=== PATIENT | female | born 2000 | race Two or more races ===

== ENCOUNTER 2025-03-23 16:40 | Observation (INO) | payer MEDICAID, SELFPAY ==
[2025-03-23 16:42] VITALS: BP 122/73; PULSE 95; RESP 100; RESP 18; TEMP 36.6; O2SAT 100
[2025-03-23 16:47] VITALS: PULSE 112; O2SAT 100
[2025-03-23 16:52] VITALS: PULSE 92; O2SAT 100
[2025-03-23 16:53] VITALS: BMI 27.3
[2025-03-23 16:57] VITALS: PULSE 91; O2SAT 100
[2025-03-23 17:02] VITALS: PULSE 92; O2SAT 99
== END 2025-03-23 17:10 | disposition home or self-care (01) ==
PROVIDERS: Admitting Provider Specialist; Visit Provider Specialist
DX: O36.8130 Decreased fetal movements, third trimester, not applicable or unspecified (principal); Z3A.34 34 weeks gestation of pregnancy
CPT/HCPCS: 59025; 59899

== ENCOUNTER 2025-04-22 13:50 | Inpatient (IN) | payer MEDICAID, SELFPAY ==
[2025-04-22] VITALS (118 sets, daily range): BP systolic 108–165; BP diastolic 55–103; PULSE 79–117; RESP 17–99; TEMP 36.6–36.8; O2SAT 97–100; BMI 34.1
[2025-04-22] MEDS: RINGERS LACTATED 1000 ML 1,000 ML 100 ML IV ×3 (14:44→20:08)
[2025-04-22 14:48] LABS: Basophils # (Auto) 0.0 Thou/mm3 (0.0-0.2); Basophils % (Auto) 0 % (0-2.5); Eosinophils # (Auto) 0.0 Thou/mm3 (0.0-0.5); Eosinophils % (Auto) 0 % (0-10); Hematocrit 33.2 % (36.0-46.0); Hemoglobin 10.9 g/dL (12.0-16.0); Immature Granulocytes Auto 0.17 Thou/mm3 (0.00-0.00); Lymphocytes # (Auto) 1.3 Thou/mm3 (1.0-4.8); Lymphocytes % (Auto) 12 % (10-50); Mean Corpuscular HGB Conc 32.8 g/dl (31.0-37.0); Mean Corpuscular Hemoglobin 28.3 pg (25.0-35.0); Mean Corpuscular Volume 86 fL (80-100); Monocytes # (Auto) 0.6 Thou/mm3 (0.0-0.8); Monocytes % (Auto) 5 % (0-12); Neutrophils # (Auto) 8.6 Thou/mm3 (1.8-7.7); Neutrophils % (Auto) 80 % (37-80); Nucleated Red Blood Cell # 0.00 Thou/mm3 (0.00-0.00); Nucleated Red Blood Cell % 0 /100 WBC (0); Platelet Count 212 Thou/mm3 (140-440); RDW Standard Deviation 40.5 fL (36.4-46.3); Red Blood Count 3.85 Miln/mm3 (4.00-5.20); White Blood Count 10.7 Thou/mm3 (3.6-11.0)
[2025-04-22 15:25] LABS: Syphilis Nonreactive (Nonreactive)
[2025-04-22 16:14] LABS: Amphetamine/Metham Scrn,Ur OB Negative (Negative); Benzoylecgonine Screen, Ur OB Negative (Negative); Opiate Screen,Urine OB Negative (Negative); THC Screen,Urine OB Negative (Negative)
--- NOTE | 2025-04-22 16:59 | PD.LDHP ---
Documentation for date of: 04/22/25 OB Labor/Induct. HPI History of Present Illness Chief complaint: contractions : 2 Para: 1 Term pregnancies: 1 pregnancies: 0 Living children: 1 History of Abortions: Spontaneous and Elective: 0 History of Vaginal deliveries: 1 History of sections: No History of : No TESS: 05/06/25 Gestational Age (weeks): 38 Gestational Age (days): 0 History of present illness: Patient presents for regular, painful ctx. Started at 0900 today. No LOF. No vaginal bleeding. Normal movement. No fevers/chills. History of Present Adequate Care: Yes Narrative: Hx of 3 years ago, proven to [id number] Current significant for: PNC with Dr. Eddy Anemia, taking iron Current BMI 34.2 Currently finishing course of flagyl for BV Labs Maternal Blood Type: B Pos Labs: Positive: Rubella Titre, Negative: RPR, Hepatitis B, HIV, Chlamydia, Gonorrhea and Group Beta Strep and Unknown: Herpes Type 1, Herpes Type 2 and Covid-19 Narrative: 1hr glucola 122 HgbA1c 5.1 NIPT 46XY msafp negative Review of Systems Review of Systems Narrative Review of Systems: Review of Systems Systems Reviewed: All systems reviewed, normal except as documented Constitutional Constitutional: Denies body ache(s), Denies chills, Denies fever(s) and Denies headache(s) ENT Ears, Nose, Mouth, and Throat: Denies headache(s) and Denies vertigo Cardiovascular Cardiovascular: Denies chest pain, Denies palpitations, Denies dyspnea and Denies syncope Respiratory Respiratory: Denies cough, Denies dyspnea Gastrointestinal Gastrointestinal: Denies nausea and Denies vomiting Neurologic Neurologic: Denies convulsions, Denies headache(s), Denies other visual disturbances, Denies syncope and Denies vertigo Past Medical History Family History OTHER FAMILY HX: Hx of breast cancer maternal side Surgical History SURGICAL: Negative Section OTHER SURGICAL HX: laparoscopic appendectomy Social History SOCIAL: No current ETOH/illicit drug use/tobacco. Previous THC use. Good family support. Past Medical History Comments PMH COMMENT: Current BMI 34.2 Meds Home Medications and Allergies Home Medications ?Medication ?Instructions ?Recorded ?Confirmed ?Type vit no.37-iron fum 29 mg 1 tab PO QDAY 01/16/22 04/22/25 History iron-folic acid 1 mg chewable tablet (PreNata) metronidazole 500 mg tablet 500 mg PO BID 04/22/25 04/22/25 History Allergies Allergy/AdvReac Type Severity Reaction Status Date / Time No Known Allergies Allergy Verified 04/22/25 13:52 OB Exam Physical Exam Vital signs: Temp Pulse Resp BP Pulse Ox 98.2 F 92 17 117/71 97 04/22/25 13:57 04/22/25 13:59 04/22/25 13:57 04/22/25 13:59 04/22/25 14:19 Narrative: General: well developed, well nourished, no acute distress, conversant Cardiac: normal heart rate Lungs: breathing without distress Abdomen: soft, gravid, non-tender, no rebound or guarding Extremities: trace edema BLE Detailed Labor and Delivery Exam Dilation (cm): 4 Effacement (%): 80 Cervix position: mid station: -3 Consistency: soft Presentation: Vertex Membranes: intact Baseline heart rate: 150 monitor accelerations: 15x15 monitor decelerations: Variable (occasional) 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 Regular/painful contractions, SCE: 4/80/-3. Vitals wnl, benign exam. Reassuring assessment. PMhx/ complicated by: PNC with Dr. Eddy Anemia, taking iron Current BMI 34.2 Currently finishing course of flagyl for BV Plan: -Admit to L&D -Establish IV, routine labs -CEFM -Clear liquid diet -Wellness Ambassador/consent re: -GBS status: negative -Anticipate -Safe to proceed (2) Obesity affecting in third trimester: Status: Acute (3) Anemia affecting in third trimester: Status: Acute (2) Obesity affecting in third trimester Qualifiers: Obesity type affecting : unspecified obesity Qualified Code(s): O99.213 - Obesity complicating , third trimester
[2025-04-22] MEDS: OXYTOCIN in NS 30 units 30 UNIT/500 ML BAG IV (20:08)
[2025-04-22] MEDS: OXYTOCIN in NS 20 units 20 UNIT/1,000 ML BAG 125 UNIT IV (21:16)
--- NOTE | 2025-04-22 21:38 | OBDSUM_ITS ---
Data ([place]) Data Hx Section: No : 2 Term: 1 : 0 Livin Abortions: Spontaneous & Theraputic: 0 Delivery Data ([place]) Labor Data Initiation of labor: Augmentation Induction/Augmentation Agent: Pitocin and Artificial ROM ROM date: 04/22/25 ROM time: 21:06 Amniotic membrane rupture type: Artificial Amniotic fluid description: Clear Delivery Data Onset of labor date: 04/22/25 Onset of labor time: 09:20 Complete dilation date: 04/22/25 Complete dilation time: 20:50 delivery date: 04/22/25 [place] delivery time: 21:14 Placenta delivery date: 04/22/25 Placenta delivery time: 21:19 Stage 1 total time: Labor - Stage 1 Duration 11 hours and 30 minutes Delivered by: Melissa Cordero Delivery nurse: jillian cody RN [place] nurse: guerita blevins RN Translator/Interpreter at delivery: No Support person(s) at delivery: father of the baby maternal mother Other staff at delivery: damián duke rn Delivery Method Delivery method: Normal Vaginal Delivery Presentation: Vertex Anesthesia Type Anesthesia Type: Epidural Placenta Placenta delivery description: Spontaneous and Manual Removal Cord blood sent to lab: Yes cord blood collection: Cord Blood Type EBL Estimated blood loss (ml): 150 Umbilical Cord cord description: 3 Vessels and Nuchal Cord Additional Procedures Chica is a 24yo [id number] s/p uncomplicated at 38&0wk after presenting in active labor, delivering at 21:14 on 04/22/2025. On presentation, SCE was 4cm. She progressed with pitocin augmentation to C/C/0 at which point AROM was performed and she began pushing. She received an epidural in labor. With good maternal pushing efforts, 's head delivered OA and restituted ARSLAN. One nuchal cord reduced. Right anterior shoulder delivered easily followed by posterior shoulder and corpus. had spontaneous cry and was vigorous. Apgars 9/9. placed on maternal abdomen where nose/mouth were suctioned and dried/stimulated. After approximately 2 minutes, cord was clamped x2 and cut by FOB. Cord blood collected for typing. With fundal massage and cord traction, placenta delivered spontaneously and intact with 3 vessel centrally inserted cord. Bimanual massage performed and IV pitocin given per protocol with fundus then firm at u-2cm and hemostasis noted. Inspection of perineum and vagina revealed a small/superficial right [place]- urethral laceration and a very tiny 2nd degree midline perineal laceration which were repaired in routine fashion with 4-0 vicryl- total reapproximation and hemostasis achieved. Small trickle of blood, so sweep just within cervix/CLAYTON performed which retrieved a very small amount of clot. All counts correct x2. Mom and infant were doing well when I left the room. Melissa Cordero MD Complications Complications: none [place] Data ([place]) [place] Data order: 1 [place]'s gender: Male Identification band number: [id number] 1 minute: 9 5 minutes: 9
[2025-04-23 04:00] VITALS: BP 108/69; PULSE 86; RESP 18; TEMP 36.8; O2SAT 98
[2025-04-23] MEDS: IBUPROFEN TAB 400 MG TABLET 800 MG PO ×2 (04:08→16:25)
[2025-04-23 05:51] LABS: Basophils # (Auto) 0.0 Thou/mm3 (0.0-0.2); Basophils % (Auto) 0 % (0-2.5); Eosinophils # (Auto) 0.1 Thou/mm3 (0.0-0.5); Eosinophils % (Auto) 1 % (0-10); Hematocrit 31.4 % (36.0-46.0); Hemoglobin 10.1 g/dL (12.0-16.0); Immature Granulocytes Auto 0.13 Thou/mm3 (0.00-0.00); Lymphocytes # (Auto) 1.7 Thou/mm3 (1.0-4.8); Lymphocytes % (Auto) 15 % (10-50); Mean Corpuscular HGB Conc 32.2 g/dl (31.0-37.0); Mean Corpuscular Hemoglobin 28.1 pg (25.0-35.0); Mean Corpuscular Volume 88 fL (80-100); Monocytes # (Auto) 0.7 Thou/mm3 (0.0-0.8); Monocytes % (Auto) 6 % (0-12); Neutrophils # (Auto) 8.8 Thou/mm3 (1.8-7.7); Neutrophils % (Auto) 77 % (37-80); Nucleated Red Blood Cell # 0.00 Thou/mm3 (0.00-0.00); Nucleated Red Blood Cell % 0 /100 WBC (0); Platelet Count 178 Thou/mm3 (140-440); RDW Standard Deviation 41.1 fL (36.4-46.3); Red Blood Count 3.59 Miln/mm3 (4.00-5.20); White Blood Count 11.4 Thou/mm3 (3.6-11.0)
[2025-04-23 07:00] VITALS: BP 108/73; PULSE 88; RESP 18; TEMP 36.8; O2SAT 99
[2025-04-23] MEDS: BENZO/LANO/ALOE (Dermoplast) 60 GM CAN 1 SPRAY TOP (07:48)
[2025-04-23] MEDS: DOCUSATE SOD 100 MG CAPSULE PO ×2 (08:08→20:44)
[2025-04-23] MEDS: PRENATAL VITAMIN/FE FUM/FA TABLET 1 TAB PO (08:10)
[2025-04-23 11:31] VITALS: BP 107/69; PULSE 82; RESP 18; TEMP 36.4; O2SAT 98
--- NOTE | 2025-04-23 11:42 | ESDS_ITS ---
DS: Providers Provider Date of admission: 04/22/25 14:16 Primary care physician: James Rehman PA-C Admitting Provider: Melissa Cordero MD Attending Provider on Admission: Melissa Cordero MD Consults: 04/22/25 21:35 Referral Routine Comment: Attending Provider on DC: Melissa Cordero MD Discharging Provider: Melissa Cordero MD DS: Diagnosis Discharge Diagnosis (1) (normal spontaneous vaginal delivery): Status: Acute (2) care following vaginal delivery: Status: Acute (3) Obesity affecting in third trimester: Status: Acute (4) Anemia affecting in third trimester: Status: Acute Problem List Completed Was Problem List Reviewed/Reconciled?: Yes Summary/Hosp Course Brief History: Chica is a 24yo [id number] s/p uncomplicated at 38&0wk after presenting in active labor, delivering at 21:14 on 04/22/2025. She has had an uncomplicated course, meeting all milestones and feels ready for discharge home. She is ambulating without lightheadedness, tolerating regular diet no n/v, spontaneously voiding without issue. She has no chest pain or shortness of breath. No fevers or chills. Minimal, appropriate discomfort. Vitals normal, benign exam. Hemodynamically stable with no evidence of infection. PP Hgb 10.1 from 10.9. Peripartum Data Delivery Method: Normal Vaginal Delivery Status at Discharge Functional status at discharge: independent ambulation Overall status at discharge: patient is back to baseline Time Spent with Patient Time attestation: Total time spent providing and/or coordinating discharge services: Exam Vital Signs Temp Pulse Resp BP Pulse Ox O2 Del Method 97.6 F 82 18 107/69 98 Room Air 04/23/25 11:31 04/23/25 11:31 04/23/25 11:31 04/23/25 11:31 04/23/25 11:31 04/23/25 11:31 Narrative Exam General: well developed, well nourished, no acute distress, conversant Cardiac: normal heart rate Lungs: breathing without distress Abdomen: soft, post-gravid, non-tender, no rebound or guarding, Fundus firm at u-3cm. Extremities: no pain with palpation of calves, trace edema of BLE Discharge Plan Plan Patient Disposition: HOME (Self Care) Patient condition on transfer: Stable Prescriptions/Referrals Prescriptions/Med Rec: New docusate sodium 100 mg Capsule 100 mg PO BID 10 Days Qty: 20 0RF ibuprofen 800 mg tablet 800 mg PO Q8H PRN (Reason: See Comments) 10 Days Qty: 20 0RF Continued PreNata 29 mg iron- 1 mg tablet,chewable 1 tab PO QDAY Patient Comments: Take 1 tablet by mouth once a day Discontinued metronidazole 500 mg tablet 500 mg PO BID Patient Comments: TAKE 1 TABLET BY MOUTH TWICE A DAY Referrals: James Rehman PA-C [Primary Care Provider] Patient/Caregiver Discharge Instructions Discharge Activity: activity as tolerated and other Other Discharge Activity Instructions:: vaginal rest and no heavy lifting more than 10 pounds for 6 weeks Other Discharge Diet Instructions: regular Education Materials: After a Vaginal Print Language: Persian Activity Restrictions/Additional Instructions: follow up with Dr. Eddy in 4 weeks for visit, call office to schedule appointment Stand Alone Forms: Lorrie Award Info., Patient Portal Info Letter Discharge Order Discharge Orders: Discharge (Routine); Ordered 04/23/25 Ordered By: Melissa Cordero Planned Discharge Date 04/23/25 (3) Obesity affecting in third trimester Qualifiers: Obesity type affecting : unspecified obesity Qualified Code(s): O99.213 - Obesity complicating , third trimester
[2025-04-23 16:15] VITALS: BP 98/63; PULSE 82; RESP 18; TEMP 36.8; O2SAT 98
[2025-04-23 19:45] VITALS: BP 102/66; PULSE 89; RESP 18; TEMP 36.8; O2SAT 97
== END 2025-04-23 21:55 | disposition home or self-care (01) | DRG 560 ==
LOC: S4SX 17:17 → S4NX 23:41
PROVIDERS: Admitting Provider Obstetrics & Gynecology; PCP Physician Assistant Medical; Visit Provider Obstetrics & Gynecology
DX: O99.214 Obesity complicating childbirth (principal); O99.02 Anemia complicating childbirth; O69.81X0 Labor and delivery complicated by cord around neck, without compression, not applicable or unspecified; Z37.0 Single live birth; Z3A.38 38 weeks gestation of pregnancy; O70.1 Second degree perineal laceration during delivery; Z90.49 Acquired absence of other specified parts of digestive tract
CPT/HCPCS: 36415; 59025; 59409; 80307; 85025; 86780; 86850; 86900; 86901; 94762; J2590; J2795; J3010; J7120; A9270